=== PATIENT | male | born 1965 | race Caucasian/White ===

== ENCOUNTER 2016-10-31 14:00 | Emergency (ER) | payer SELFPAY ==
[2016-10-31] MEDS ORDERED: AMLO10TA2 PO (15:49)
[2016-11-01] MEDS ORDERED: CLOP75TA PO (11:49)
== END 2016-10-31 14:10 | disposition left against medical advice (07) ==
LOC: ER 14:00
DX: R20.0 Anesthesia of skin (principal); M79.661 Pain in right lower leg; Z53.21 Procedure and treatment not carried out due to patient leaving prior to being seen by health care provider